=== PATIENT | female | born 1945 | race Caucasian/White ===

== ENCOUNTER 2019-04-07 14:13 | Inpatient (IN) ==
[2019-04-07] MEDS ORDERED: Clindamycin 900 MG/50 ML 900 MG/50 ML IV.SOLN IVPB ONE (14:52)
--- NOTE | 2019-04-07 14:55 | History & Physical Report ---
Date of Encounter: 04/07/19 Time of Encounter: 14:55 24 Hour HP Update - Instructions Instructions: If the History and Physical is less than 30 days old and was completed prior to A.M. admission and or procedure and has NOT been updated on calendar day of procedure please complete this update prior to performing procedure. - Update Patient reports changes in Medical Condition: No Changes in examination, assessment, or condition: No Changes in Medication: No Preop tests/diagnostics Reviewed: Yes Surgery Remains Indicated: Yes Consent for Planned Operative Procedure(s) Verified: Yes - Pre-Operative Checklist Preoperative Checklist Indicated: No Prophylactic Antibiotic Ordered: Yes Is VTE Prophylaxis Indicated?: Yes
[2019-04-07] MEDS ORDERED: Ringers Solution, Lactated 1,000 ML IVC SCH ×2 (15:00→20:15)
[2019-04-07] MEDS ORDERED: Acetaminophen IV 1,000 MG/100 ML INFUS..BTL IVPB ONE (15:04)
[2019-04-07] MEDS ORDERED: Famotidine 20 MG/2 ML VIAL IVP ONE (15:04)
--- NOTE | 2019-04-07 15:18 | Anesthesia Evaluation PreOp ---
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: Denies Any Significant HX Other Medical History: Diabetes Type II, Other (Morbid Obesity) Anesthesia History: No Prior Anesthetic Complications : No Alcohol Use: none Drug use: none Medications and Allergies Atorvastatin [Lipitor] 10 mg PO HS 08/14/18 [History] Cholecalciferol (D-3) [Vitamin D] 1,000 unit PO DAILY 08/14/18 [History] Gabapentin [Neurontin] 100 mg PO BID 08/14/18 [History] Insulin ASPART [Novolog] 0 - 10 unit SQ BID 08/14/18 [History] Lisinopril [Zestril] 40 mg PO HS 08/14/18 [History] Montelukast [Singulair] 10 mg PO HS 08/14/18 [History] Pantoprazole Sodium 40 mg PO DAILY 08/14/18 [History] traZODone [TraZODone] 50 mg PO HS 08/14/18 [History] Dulaglutide [Trulicity] 0.7 mg SQ SA 04/07/19 [History] Insulin Glargine,Hum.rec.anlog [Basaglar Kwikpen U-100] 40 unit SQ HS 04/07/19 [History] Allergy/AdvReac Type Severity Reaction Status Date / Time Penicillins Allergy Hives Verified 04/03/19 15:51 codeine AdvReac Confusion Verified 08/14/18 16:29 Iodinated Contrast- Oral and AdvReac Hypertensio Verified 04/03/19 15:51 IV Dye n - Meds/Allergy Pre-op Review Medications Reviewed: Yes Allergies Reviewed: Yes Beta Blockers on Current Med List: No Anesthesia Results - Labs Laboratory Tests 04/03/19 04/03/19 04/03/19 16:15 16:15 16:15 Hgb 13.0 Hct 39.6 Plt Count 237 PT 11.6 INR 1.0 APTT 29.1 Sodium 140 Potassium 4.4 BUN 28 H Creatinine 1.14 - Imaging EKG: report reviewed (SR) Additional studies: [facility] 2015 EF 60%, normal coronary artery Anesthesia Exam O2 Sat Height 1.57 m Height 1.57 m Weight 97.069 kg Weight 97.069 kg O2 Sat by Pulse Oximetry 94 Vital Signs Temp Pulse Resp BP Pulse Ox 98.9 F 97 16 119/66 94 04/07/19 14:54 04/07/19 14:54 04/07/19 14:54 04/07/19 14:54 04/07/19 14:54 Height: 5'2 Weight: 214 lnbs NPO (# of Hours): MN Pain Scale: 0 - HEENT Pupil (Motor): Pupils equal, EOMI Mallampati: III Teeth: Edentulous (no upper dentition) Denture Type: Upper: Complete Oral Opening: Less than or equal to 3 - GAS PUMPING STATION HELPER LOC: Oriented GAS PUMPING STATION HELPER Motor: Normal RUE, Normal LUE, Normal RLE, Normal LLE, Normal Face GAS PUMPING STATION HELPER Sensory: Normal: RUE, LUE, RLE, LLE, Face - Cardiac Rhythm: Regular Murmur: None JVD: No Carotid Bruit: No - Pulmonary Breath Sounds: bilateral Clear Respiratory Effort: Symmetrical Anesthesia Assess/Plan ASA Score: 3 (HTN CAD DM MO) Level of consciousness: Cooperative, Oriented Anesthetic Plan: General, Regional Nerve Block Regional Nerve Block Plan: Supraclavicular Autologous Blood: No Monitoring Plan: Standard Monitors Recovery Plan: PACU (Discussed GA, Brachial Plexus Block, risk and benefits, agrees to proceed)
[2019-04-07] MEDS ORDERED: *HR* Succinylcholine 200 MG/10 ML VIAL IVP ONE ×2 (15:22→15:32)
[2019-04-07] MEDS ORDERED: Ondansetron 4 MG/2 ML VIAL ONE ×2 (15:22→15:32)
[2019-04-07] MEDS ORDERED: *HR* Propofol 200 MG/20 ML VIAL IVP ONE ×2 (15:22→15:32)
[2019-04-07] MEDS ORDERED: Dexamethasone 4 MG/ML VIAL ONE ×2 (15:22→15:32)
[2019-04-07] MEDS ORDERED: *HR* FentaNYL (PF) 100 MCG/2 ML VIAL ONE ×2 (15:22→15:32)
[2019-04-07] MEDS ORDERED: Lidocaine -MPF 2% 2 ML VIAL ONE ×3 (15:22→15:32)
[2019-04-07] MEDS ORDERED: Ropivacaine/PF 0.5% 30 ML VIAL ONE ×2 (15:28→16:04)
[2019-04-07] MEDS ORDERED: ROPIVACAINE/PF/NS 0.25% 1 EACH SYRINGE INTRAART ONE ×2 (15:29→16:04)
[2019-04-07] MEDS ORDERED: *HR* HYDROmorphone (PF) 1 MG/ML SYRINGE IVP PRN (15:32)
[2019-04-07] MEDS ORDERED: *HR* OxyCODONE Immed Rel 5 MG TABLET PO PRN ×3 (15:32→20:21)
[2019-04-07] MEDS ORDERED: Ondansetron 4 MG/2 ML VIAL IVP ONE (15:32)
[2019-04-07] MEDS ORDERED: Lidocaine HCL 4 ML Topical Solution (Laryng-O-Jet Kit Sterile Pak) TP ONE (15:32)
[2019-04-07] MEDS ORDERED: Ethanol\\Acetic Acid\\Na Ace\\Ben 1,000 ML IRRIG.SOLN IR ONE (15:56)
[2019-04-07] MEDS ORDERED: *HR* Rocuronium Bromide 50 MG/5 ML VIAL ONE (17:07)
[2019-04-07] MEDS ORDERED: *HR* PHENYLEPHRINE 1,000 MCG/10 ML SYRINGE IVP ONE (17:17)
[2019-04-07] MEDS ORDERED: EPHEDrine 50 MG/ML VIAL ONE (17:18)
--- NOTE | 2019-04-07 17:23 | Anesthesia Procedures ---
Date of Encounter: 04/07/19 Time of Encounter: 17:21 Procedures: Anesthesia - Nerve Block Procedure Date: 04/07/19 Time: 17:21 Surgical Procedure: left tsr reverse Checklist: Correct Patient Identifier, Correct procedure, History checked Correct side: Left Blood Thinner: No Monitor Applied: EKG, BP, Pulse Oximetry Supplemental Oxygen via Nasal Cannula (L/min): 2 Sedation: Fentanyl (mcg): 100 Indication: Post Op Analgesia (request per dr lee for post op pain control) Pre-op Neuro Deficits: No Block Type: Supraclavicular, Other (scp/icb) Catheter placed: No Sterile Technique: Yes Ultrasound used: Yes Anatomy identified: Yes Visual spread of Local: Yes Neuro Stimulation: No Blood on Needle Aspiration: No Smooth Injection of Local: Yes Pain with Injection of Local: No Prep: Chlorhexadine Needle: 22 x 50 mm Stimuplex Local: 0.25% Bupivicaine w/Clonidine 20 mcg/cc (for scp/icb), Ropivacaine (0.5% 30ml for supraclav, 10ml for scp/icb) Volume (cc): 40 Number of Attempts: 1 Complications: None/effective block Vitals: Vital Signs/O2 Sat/Glucose, Most Current Temp Pulse Resp BP Pulse Ox 04/07/19 16:55 87 150/82 98 04/07/19 16:51 88 145/51 98 04/07/19 14:54 98.9 F 97 16 119/66 94 Comments: pt tolerated procedure well. no complications. vss.
--- NOTE | 2019-04-07 17:57 | Orthopedic Operative Note ---
Date of procedure: 04/07/19 Pre-op diagnosis: Left shoulder rotator cuff tear arthropathy Post-op diagnosis: same Procedure: Procedure: Total Shoulder Replacment Reverse, left Estimated blood loss: 50 cc Hardware: Metal and polyethylene replacement: Arthrex 24, +4 , 30 mm screw gl enoid baseplate, 4 locking 5.5 screw, 39+4 glenosphere, 8 Hiram humeral stem, poly insert 3 Exam Under anesthesia: Full motion no instability Procedural Notes: Grade 4 arthritic changes humeral head glenoid socket, rotator cuff tear Operative procedure: The patient was brought to the operating room and placed on the operating room table. After general anesthesia was administered the operative shoulder was examined. Findings were noted. The patient was placed in the modified beachchair position. All pressure points were padded appropriately. And the head was stabilized in the neutral position. The operative extremity was prepped and draped in the sterile surgical fashion. The patient received IV antibiotics prior to skin incision. A standard deltopectoral approach was made to the operative shoulder. Incision was made to the skin and subcutaneous tissue,hemo stasis was obtained with Bovie cautery. Using careful blunt dissection the cephalic vein was identified and mobilized medially. The deltopectoral interval was developed and the clavipectoral fascia was incised. The subscap was released off the lesser tuberosity and tagged with #2 FiberWire suture subscap was irreparable. The humerus was dislocated patient noted to have tear supraspinatus tendon, and the humeral cut was made along the anatomic neck. Patient noted to have grade 4 arthritic changes humeral head glenoid socket. Anterior and posterior Bankart retractors were placed to expose the glenoid. The glenoid guide was seated and the centering hole was made. It was reamed with the appropriate reamer. The 24, +4, 30 mm screw, base plate was seated and secured with 4 locking 5.5 screw. The baseplate was irrigated and dried and the 39+4 Glenosphere was seated and secured with the Skinner taper. The Skinner taper was tested and found to be secure, glenosphere fixation was secondarily secured with the central screw. The humerus was redislocated and prepared with the diaphyseal reamers, followed by a broaching process up to the appropriate size 8 Hiram in the patient's anatomic version. The metaphyseal reamer was then utilized. Trial reduction found the shoulder to be relocatable. Trial components were removed and 8 Hiram stem was impacted in place in the patient's anatomic version. Trial reduction found the shoulder to be relocatable and stable with the appropriate 3. Trial component was removed and the real implant was seated and secured the shoulder was reduced. The shoulder had excellent motion and excellent stability and no evidence of dislocation. The deep tissue was irrigated with pulse irrigation. The PA close the shoulder. The deltopectoral interval was closed with a running #1 PDS suture, subcutaneous tissue was irrigated and closed with 0 PDS suture, the skin was closed with Dermabond. The patient was placed in a sterile dressing, abduction brace and extubated. The patient was then transferred to the recovery room in stable condition. Anesthesia: GETA Surgeon: Petey Stout Was there an bus assistant present: Yes Customer Account Coordinator: Hugo Durham Estimated blood loss (cc): 50 Condition: stable Disposition: PACU
--- NOTE | 2019-04-07 19:01 | Anesthesia Evaluation Post Op ---
Date of Encounter: 04/07/19 Time of Encounter: 19:00 - Vital Signs Vital Signs: Vital Signs/O2 Sat, Most Current Temp Pulse Resp BP Pulse Ox 98.2 F 86 16 145/65 98 04/07/19 18:53 04/07/19 18:53 04/07/19 18:53 04/07/19 18:53 04/07/19 18:53 - Lungs Lungs: Clear Ascult./Percussion - Airway Airway: Non-obstructed - Cardiovascular Regular Rate, Baseline Rhythm - Mental Status Mental Status: Alert & Oriented, Answers Appropriately - Pain Pain Scale: 0 Pain Scale used: Numeric (1 - 10) - Nausea Vomiting Nausea Vomiting: Not Present - Hydration Hydration: Tolerates oral liquids, Has not voided - Discharge PostOp Status: Transfer Patient to floor
[2019-04-07 19:13] LABS: Hematocrit 37.9 % (35.3-44.9); Hemoglobin 12.3 g/dL (11.5-15.4)
[2019-04-07] MEDS ORDERED: MOM Conc 10 ML UD.LIQ PO PRN (20:10)
[2019-04-07] MEDS ORDERED: Temazepam 15 MG CAPSULE PO PRN (20:10)
[2019-04-07] MEDS ORDERED: Ondansetron 4 MG/2 ML VIAL IVP PRN (20:10)
[2019-04-07] MEDS ORDERED: Sennosides 8.6 MG TABLET PO PRN (20:10)
[2019-04-07] MEDS ORDERED: traMADol 50 MG TABLET PO PRN (20:22)
[2019-04-07] MEDS: *HR* Enoxaparin 30 MG/0.3 ML SYRINGE SQ SCH (20:45)
[2019-04-08] MEDS: Clindamycin 900 MG/50 ML 900 MG/50 ML IV.SOLN IVPB SCH ×2 (00:47→08:31)
[2019-04-08] MEDS: *HR* OxyCODONE/APAP 5/325 TABLET PO PRN ×2 (05:03→13:37)
[2019-04-08] MEDS: *HR* Enoxaparin 30 MG/0.3 ML SYRINGE SQ SCH (05:04)
[2019-04-08] MEDS ORDERED: Dextrose Gel 15 GM/37.5 ML TUBE PO PRN ×2 (06:12)
[2019-04-08] MEDS ORDERED: *HR* Dextrose 50 % in Water (Syg) 50 ML SYRINGE IVP PRN (06:12)
[2019-04-08] MEDS ORDERED: D5% in Water 1,000 ML IVC PRN (06:12)
--- NOTE | 2019-04-08 06:29 | Orthopedics Progress Note ---
Date of Encounter: 04/08/19 Time of Encounter: 06:28 Subjective Interval history: Patient was seen this morning doing well without complaints. Afebrile vital signs stable. Operative extremity: Neurovascularly intact Dressing clean dry and intact Calves nontender Assessment and plan: Continue with postoperative care hct 37, plan for discharge today Objective Vital signs: Vital Signs Temp Pulse Resp BP Pulse Ox 04/08/19 05:03 100/63 04/08/19 03:55 98.4 F 86 20 101/68 95 04/07/19 22:43 97.7 F 88 14 115/62 96 04/07/19 21:31 97.9 F 86 14 122/66 95 04/07/19 20:30 98.7 F 86 12 121/69 95 04/07/19 19:44 97.4 F L 85 12 155/79 97 04/07/19 19:41 98.1 F 88 12 130/80 96 04/07/19 19:15 98.1 F 88 12 130/80 96 04/07/19 18:53 98.2 F 86 16 145/65 98 04/07/19 18:43 98.2 F 86 16 114/57 97 04/07/19 18:33 89 16 116/44 96 04/07/19 18:23 85 16 126/56 98 04/07/19 18:13 98.9 F 98 16 105/92 97 04/07/19 16:55 87 150/82 98 04/07/19 16:51 88 145/51 98 04/07/19 14:54 98.9 F 97 16 119/66 94 Intake and Output 04/07/19 04/07/19 04/08/19 15:59 23:59 07:59 Intake Total 1000 / 1000 300 / 300 Output Total 50 / 50 Balance 950 / 950 300 / 300 Intake: IV Fluids 1000 / 1000 50 / 50 Lactated Ringers 1,000 ML @ 75 1000 / 1000 mls/hr IVC .[id number] [id number] Rx#: [id number] Cleocin Premix 900 MG/50 ML 900 50 / 50 mg In 50 ml @ 50 mls/hr IVPB Q8HR MISSY Rx#:[id number] Oral 250 / 250 Output: Estimated Blood Loss 50 / 50 Other: # Voids 1 1 Weight 97.069 kg 108.8 kg Blood Glucose* 117 264 380 Patient Weight 04/08/19 23:59 Weight 108.8 kg - Labs CBC & BMP: 04/07/19 18:49 Labs: Abnormal lab results POC Glucose 264 mg/dL (70-99) H 04/07/19 23:52 - VTE Documentation of Mechanical Device: Venous foot pump, device Consult Discharge Plan - Plan Referrals: Marie Hurtado, CYTOLOGY MANAGER [Primary Care Provider] -
[2019-04-08] MEDS: Insulin LISPRO 300 UNITS/3 ML VIAL SQ SCH ×2 (07:33→11:31)
--- NOTE | 2019-04-08 07:58 | Discharge Summary ---
Orders not resulted at time of discharge: Pending orders 04/07/19 17:44 Surgical Pathology [PTH] Routine Date of Encounter: 04/08/19 Time of Encounter: 09:45 - Discharge Diagnosis (1) Rotator cuff tear arthropathy of left shoulder Priority: Primary Status: Chronic (2) Status post total replacement of left shoulder Priority: Primary Status: Acute (3) HTN (hypertension) Priority: Secondary Status: Chronic Qualifiers: Hypertension type: unspecified Qualified Code(s): I10 - Essential (primary) hypertension (4) Diabetes mellitus Priority: Secondary Status: Chronic Qualifiers: Diabetes mellitus type: type 2 Diabetes mellitus skilled nursing insulin use: with skilled nursing use Diabetes mellitus complication status: with other specified complication Qualified Code(s): E11.69 - Type 2 diabetes mellitus with other specified complication; Z79.4 - detention (current) use of insulin (5) Obesity Priority: Secondary Status: Chronic Qualifiers: Obesity type: unspecified obesity type Obesity classification: unspecified obesity classification Serious obesity comorbidity presence: unspecified whether serious comorbidity present Qualified Code(s): E66.9 - Obesity, unspecified - Hospital Course Hospital course: Ms. pSencer is a 74 year old female POD#1 s/p Total Shoulder Replacment Reverse, left [Left shoulder rotator cuff tear arthropathy] 04/07/19 Patient seen at bedside. A&Ox3 Dressing and incision c/d/i Left upper extremity continues with active block - patient denies sensation, however is able to move fingers, but not enough to make fist. No calf tenderness, erythema, or warmth. Neurovascularly intact b/l LE. Labwork, vitals, and medications reviewed. Patient's values noted to be at preoperative baseline. Pain control: Adequate Participating in therapy. All questions and concerns addressed. Educated on use of incentive spirometer, ambulation, and hydration. Patient educated on post-operative restrictions and care. Addressed: see above. The patient's postoperative course was uneventful. Progressed from intravenous analgesic needs to oral analgesic needs only. Remained neurovascularly intact and mobilized satisfactorily. All radiographic studies were satisfactory. Patient course and disposition discussed with Dr. Stout. Patient is discharged to home with home health as plan for rehabilitation and outpatient orthopedic follow up has been arranged. - Time Spent with Patient Total time spent providing and/or coordinating discharge services: - Discharge Medications Prescriptions: New Docusate Sodium [Colace] 100 mg PO BID 5 Days #10 capsule Acetaminophen [Non-Aspirin Extra Strength] 500 mg PO Q6H PRN 7 Days #28 tablet PRN Reason: Mild To Moderate Pain OxyCODONE Immed Rel [Roxicodone 5 MG] 5 mg PO Q6HR PRN 5 Days #20 tablet PRN Reason: Severe Pain Continued Insulin Glargine,Hum.rec.anlog [Basaglar Kwikpen U-100] 40 unit SQ HS Dulaglutide [Trulicity] 0.7 mg SQ SA Montelukast [Singulair] 10 mg PO HS Cholecalciferol (D-3) [Vitamin D] 1,000 unit PO DAILY traZODone [TraZODone] 50 mg PO HS Lisinopril [Zestril] 40 mg PO HS Atorvastatin [Lipitor] 10 mg PO HS Pantoprazole Sodium 40 mg PO DAILY Gabapentin [Neurontin] 100 mg PO BID Insulin ASPART [Novolog] 0 - 10 unit SQ BID Home Medications: Atorvastatin [Lipitor] 10 mg PO HS 08/14/18 [History] Cholecalciferol (D-3) [Vitamin D] 1,000 unit PO DAILY 08/14/18 [History] Gabapentin [Neurontin] 100 mg PO BID 08/14/18 [History] Insulin ASPART [Novolog] 0 - 10 unit SQ BID 08/14/18 [History] Lisinopril [Zestril] 40 mg PO HS 08/14/18 [History] Montelukast [Singulair] 10 mg PO HS 08/14/18 [History] Pantoprazole Sodium 40 mg PO DAILY 08/14/18 [History] traZODone [TraZODone] 50 mg PO HS 08/14/18 [History] Dulaglutide [Trulicity] 0.7 mg SQ SA 04/07/19 [History] Insulin Glargine,Hum.rec.anlog [Basaglar Kwikpen U-100] 40 unit SQ HS 04/07/19 [History] Acetaminophen [Non-Aspirin Extra Strength] 500 mg PO Q6H PRN 7 Days #28 tablet 04/08/19 [Rx] Docusate Sodium [Colace] 100 mg PO BID 5 Days #10 capsule 04/08/19 [Rx] OxyCODONE Immed Rel [Roxicodone 5 MG] 5 mg PO Q6HR PRN 5 Days #20 tablet 04/08/19 [Rx] Allergies/Adverse Reactions: Allergy/AdvReac Type Severity Reaction Status Date / Time Penicillins Allergy Hives Verified 04/03/19 15:51 codeine AdvReac Confusion Verified 08/14/18 16:29 Iodinated Contrast- Oral and AdvReac Hypertensio Verified 04/03/19 15:51 IV Dye n Date of admission: 04/07/19 19:23 Primary care physician: Marie Hurtado CNP Consults: 04/07/19 20:10 Consult to Occupational Therapy [CONS] Routine Comment: post shoulder surgery Reason for Consult: post shoulder surgery Does patient have active BEDREST order?: No Is patient medically & hemodynamically stable?: Yes Consult to Physical Therapy [CONS] Routine Comment: post shoulder surgery Reason for Consult: post shoulder surgery Does patient have active BEDREST order?: No Is patient medically & hemodynamically stable?: Yes Consult to Ancient Art Curator [CONS] Routine Reason for SW Consult: shoulder surgery RT Post Op Consult [CONS] Routine Discharging clinician: Petey Stout Anticipated date of discharge: 04/08/19 - VTE Documentation of Mechanical Device: Venous foot pump, device Labs on day of discharge: Labs from last 24 hours 04/08/19 04/08/19 04/07/19 07:09 07:07 23:52 Hgb Hct POC Glucose 347 H 324 H 264 H 04/07/19 04/07/19 18:49 14:44 Hgb 12.3 Hct 37.9 POC Glucose 117 H - Impressions ITS Impressions Shoulder X-Ray 04/07/19 01:00 IMPRESSION: Status post reverse shoulder arthroplasty. No unexpected complications identified. D/ / Igor Kenney MD / Igor Kenney MD Interpreting Provider: Igor Kenney MD - Patient Status Disposition: Home Health Service Condition: Good Functional capacity at discharge: independent ambulation Overall status at discharge: patient is progressing back to baseline - Discharge Instructions Follow Up With: Marie Hurtado CNP [Primary Care Provider] - - Diet and Activity Activity: as per physical therapy Diet: advance to your usual diet
[2019-04-08 08:18] LABS: Hematocrit 34.6 % (35.3-44.9); Hemoglobin 11.1 g/dL (11.5-15.4)
[2019-04-08 08:22] LABS: Calcium 8.6 mg/dL (8.6-10.3); Potassium 5.1 mEq/L (3.5-5.1)
[2019-04-08 11:17] VITALS: BP 116/61
--- NOTE | 2019-04-08 12:32 | Physician Discharge Referral ---
Home Health/Hosp Referral Info Transfer to: Home Health Attending Provider: Dr. Petey Stout - Diagnosis (1) Rotator cuff tear arthropathy of left shoulder Priority: Primary Status: Chronic (2) Status post total replacement of left shoulder Priority: Primary Status: Acute (3) HTN (hypertension) Priority: Secondary Status: Chronic (4) Diabetes mellitus Priority: Secondary Status: Chronic (5) Obesity Priority: Secondary Status: Chronic - Respiratory Orders Smoking Cessation: Smoking cessation has been advised. For more information, call the [place] Tobacco Quit Line at 6-173-VSPH-NOW. - Dressing/Wound Care Site: left shoulder - Diet/Nutrition Diet/Nutrition Orders: Regular - Activity Activity Orders: Up ad luz maria, Ambulate, Chair - Services Needed Following services are medically necessary services: Nursing, Home Health Aide, Physical Therapy, Occupational Therapy, Med Social Work Home Care Orders: Opsite placed. Keep dressing intact until first follow up appointment. If greater than 50% saturated, notify office, remove dressing and place appropriate dressing back in place. Leave Zipline intact. Opsite dressing is water resistant, not water-proof. OK to shower, but do not get dressing wet. PT/OT. NWB to affected upper extremity. Follow Shoulder Precautions x 6 weeks. Stay in brace during activity and at night. Remove brace during exercises. ICE and elevate extremity frequently throughout the day. - Transfer Medications Prescriptions: Docusate Sodium [Colace] 100 mg PO BID 5 Days #10 capsule Acetaminophen [Non-Aspirin Extra Strength] 500 mg PO Q6H PRN 7 Days #28 tablet PRN Reason: Mild To Moderate Pain OxyCODONE Immed Rel [Roxicodone 5 MG] 5 mg PO Q6HR PRN 5 Days #20 tablet PRN Reason: Severe Pain Home Medications: Atorvastatin [Lipitor] 10 mg PO HS 08/14/18 [History] Cholecalciferol (D-3) [Vitamin D] 1,000 unit PO DAILY 08/14/18 [History] Gabapentin [Neurontin] 100 mg PO BID 08/14/18 [History] Insulin ASPART [Novolog] 0 - 10 unit SQ BID 08/14/18 [History] Lisinopril [Zestril] 40 mg PO HS 08/14/18 [History] Montelukast [Singulair] 10 mg PO HS 08/14/18 [History] Pantoprazole Sodium 40 mg PO DAILY 08/14/18 [History] traZODone [TraZODone] 50 mg PO HS 08/14/18 [History] Dulaglutide [Trulicity] 0.7 mg SQ SA 04/07/19 [History] Insulin Glargine,Hum.rec.anlog [Basaglar Kwikpen U-100] 40 unit SQ HS 04/07/19 [History] Acetaminophen [Non-Aspirin Extra Strength] 500 mg PO Q6H PRN 7 Days #28 tablet 04/08/19 [Rx] Docusate Sodium [Colace] 100 mg PO BID 5 Days #10 capsule 04/08/19 [Rx] OxyCODONE Immed Rel [Roxicodone 5 MG] 5 mg PO Q6HR PRN 5 Days #20 tablet 04/08/19 [Rx] Allergies/Adverse Reactions: Allergy/AdvReac Type Severity Reaction Status Date / Time Penicillins Allergy Hives Verified 04/03/19 15:51 codeine AdvReac Confusion Verified 08/14/18 16:29 Iodinated Contrast- Oral and AdvReac Hypertensio Verified 04/03/19 15:51 IV Dye n Certification: Further, I certify that my clinical findings support that this patient is homebound (i.e. absences from home require considerable and taxing effort and are for medical reasons or cheondoism services or infrequently or short duration when for other reasons) because: Homebound Reason: Post-surgery restriction and or conditions limit ability to leave home Attestation: My signature below is to certify that this patient is under my care and that I, or nurse practitioner, or a physician sales operations assistant working with me, has a [id number] encounter with this patient.
== END 2019-04-08 14:38 | disposition home health service (06) | DRG 483 ==
LOC: SAMDAY 14:13 → 3NENU 19:23
PROVIDERS: ADMIT Orthopaedic Surgery; ATTEND Orthopaedic Surgery